=== PATIENT | female | born 1990 | race Caucasian/White ===

== ENCOUNTER 2019-07-25 04:28 | Emergency (ER) | payer OTHER ==
[~2019-07-25] VITALS: Ht 167.6 cm; Wt 63.5 kg
[2019-07-25 04:56] LABS: ABSOLUTE NEUTROPHILS 4.1 thou/uL (1.4-8.2); BASOPHILS 0.8 % (0.0-2.0); EOSINOPHILS 1.7 % (0.0-3.0); HEMATOCRIT 43.8 % (37.0-47.0); HEMOGLOBIN 14.6 gm/dL (12.0-15.0); LYMPHOCYTES 39.1 % (24.0-44.0); MCH 28.7 pg (26.0-34.0); MCHC 33.3 g/dL (28.0-37.0); MCV 86.4 fL (80.0-100.0); MONOCYTES 5.4 % (1.0-8.0); PLATELET COUNT 190 thou/uL (150-400); RBC 5.07 mil/uL (4.20-5.00); RDW 13.1 % (10.5-14.5); WBC 7.8 thou/uL (4.0-11.0)
[2019-07-25] MEDS ORDERED: PLAQUENIL200 MG PO (05:01)
[2019-07-25] MEDS ORDERED: SPIRONOLACTONE50 MG PO (05:01)
[2019-07-25] MEDS ORDERED: CYMBALTA20 MG PO (05:02)
[2019-07-25] MEDS ORDERED: ADDERALL 30 MG30 MG PO (05:02)
[2019-07-25 05:09] LABS: ANION GAP 9 mmol/L (7-16); BUN 9 mg/dL (7-18); CALCIUM 8.9 mg/dL (8.5-10.1); CHLORIDE 106 mmol/L (98-107); CO2 25 mmol/L (21-32); CREATININE 0.7 mg/dL (0.6-1.0); GLUCOSE 97 mg/dL (74-106); POTASSIUM 3.6 mmol/L (3.5-5.1); SODIUM 140 mmol/L (136-145)
[2019-07-25 05:19] LABS: ALBUMIN 3.9 g/dL (3.4-5.0); LIPASE 146 U/L (73-393); SGOT 12 U/L (15-37); SGPT 15 U/L (30-65); TOTAL BILIRUBIN 0.5 mg/dL (<0.1-1.0); TOTAL PROTEIN 6.5 g/dL (6.4-8.2); TROPONIN-I <0.06 ng/mL (<0.06)
[2019-07-25 06:38] LABS: URINE BILIRUBIN NEGATIVE (Negative); URINE BLOOD NEGATIVE (Negative); URINE CLARITY CLEAR; URINE COLOR YELLOW; URINE GLUCOSE-RANDOM* NEGATIVE (Negative); URINE KETONES NEGATIVE (Negative); URINE LEUKOCYTES-REFLEX NEGATIVE (Negative); URINE NITRITE-REFLEX NEGATIVE (Negative); URINE PROTEIN (DIPSTICK) NEGATIVE (Negative); URINE SPECIFIC GRAVITY 1.015 (1.005-1.035); URINE UROBILINOGEN 0.2 E.U./dl (0.2-1.0)
[2019-07-25 07:16] VITALS: BP 102/64
--- NOTE | 2019-07-25 08:09 | EKG ---
[address] [address] ELECTROCARDIOGRAM REPORT Name: JENNIFER BARGER Room #: [facility]#: [id number] Admission: 07/25/19 Attend Phys: Discharge: 07/25/19 Date of : 86 Report #: [id number] THIS REPORT FOR: //name// [facility] ED Test Date: 2019-07-25 Test Time: 04:38:37 Pat Name: JENNIFER BARGER Department: Room: Gender: F [employer] Professional: TASHI : 1990 Requested By: Bella Casillas Order Number: [id number] MD: Guero Castrejon Measurements Intervals [place] Rate: 75 P: 78 [place]: 116 QRS: 46 QRSD: 90 T: 45 QT: 382 QTc: 427 Interpretive Statements Sinus rhythm Borderline short [place] interval Compared to ECG 01/31/2007 11:59:54 Sinus bradycardia no longer present Sinus arrhythmia no longer present Electronically Signed On 07-25-2019 8:09:20 CDT by Guero Castrejon [email or web address] <ELECTRONICALLY SIGNED> By: Guero Castrejon MD 07/25/19 0809 [id number] Guero Castrejon MD /ELFEGO
== END 2019-07-25 07:17 | disposition home or self-care (01) ==
LOC: ER 04:28
PROVIDERS: Student in an Organized Health Care Education/Training Program
DX: R07.89 Other chest pain (principal); R10.12 Left upper quadrant pain